=== PATIENT | female | born 1940 | race Hispanic/Latino ===

== ENCOUNTER 2017-09-11 01:37 | Emergency (ER) | payer OTHER, MEDICARE ==
[~2017-09-11] VITALS: Ht 149.9 cm; Wt 90.7 kg
--- NOTE | 2017-09-11 01:44 | ED MVC/FALL/TRAUMA COMPLAINT ---
History of Present Illness General Chief Complaint: Fall Stated Complaint: FALL Source: patient, EMS Exam Limitations: no limitations Vital Signs & Intake/Output Vital Signs & Intake/Output Vital Signs Date Time Temp Pulse Resp B/P B/P Pulse O2 O2 Flow FiO2 Mean Ox Delivery Rate 09/11 0148 98.6 87 20 153/68 94 Room Air Allergies Coded Allergies: Penicillins (Intermediate, HIVES 09/26/15) Reconcile Medications Acetaminophen (Tylenol) 325 MG TABLET 2 TAB PO BID ARTHRITIS (Reported) Aspirin (Aspirin*) 81 MG TAB.CHEW 1 TAB PO DAILY HEART (Reported) Canagliflozin (Invokana) 300 MG TABLET 1 TAB PO DAILY DM (Reported) Insulin Regular (Novolin R Inj) 1,000 UNITS/10 ML LILY 0 UNITS SC SEE ADMIN CRITERIA DIABETES (Reported) Levothyroxine Sodium (Synthroid) 75 MCG TABLET 1 TAB PO DAILY THYROID ( Reported) Metformin HCl (Glucophage) 1,000 MG TABLET 1 TAB PO BID DM (Reported) Omeprazole 20 MG CAPSULE.DR 1 CAP PO DAILY GERD (Reported) Sitagliptin Phosphate (Januvia) 100 MG TABLET 1 TAB PO DAILY DM (Reported) Triage Note: PER EMS AND [facility] PT COLOSTOMY BAG WAS LEAKING AND SLIPPED ON FLOOR ENROUTE TO BR + HEADSTRIKE AND LAC TO BACK OF HEAD. PT IS ON COUMADIN, DENIES LOC ALERT UPON ARRIVAL Triage Nurses Notes Reviewed? yes Onset: Abrupt Duration: hour(s): Timing: single episode today Severity: mild Injuries/Fall Location: head Method of Injury: fall Loss of Consciousness: no loss of consciousness Modifying Factors: Improves With: rest. Associated Symptoms: head injury HPI: 76 yo woman h/o afib, on coumadin, dementia, osteoarthritis, presents after a fall. She shares, "I bent over to fix my colostomy bag, and I fell over...." She notes that she landed on her head, had a scant amount of bleeding, which self resolved. She notes no headache, no other pain or discomfort. She has no hip pain, chest pain, syncopal symptoms. She is otherwise well. Past History Travel History Traveled to [place] past 21 day No Medical History Any Pertinent Medical History? see below for history Neurological: dementia Cardiovascular: AFIB Gastrointestinal: alcoholic hepatitis Surgical History Surgical History: none Psychosocial History What is your primary language [place]raltarian Family History Hx Contributory? No Review of Systems Review of Systems Constitutional: Reports: no symptoms. Eyes: Reports: no symptoms. Ears, Nose, Throat, Mouth: Reports: no symptoms. Respiratory: Reports: no symptoms. Cardiovascular: Reports: no symptoms. Gastrointestinal/Abdominal: Reports: no symptoms. Genitourinary: Reports: no symptoms. Musculoskeletal: Reports: no symptoms. Skin: Reports: no symptoms. Neurological/Psychological: Reports: no symptoms. All Other Systems: Reviewed and Negative Physical Exam Physical Exam General Appearance: well developed/nourished, no apparent distress Head: left sided temporal region with mild abrasion. no active bleeding. no laceration. Eyes: Bilateral: normal appearance, PERRL, EOMI. Ears, Nose, Throat, Mouth: hearing grossly normal, moist mucous membrane Neck: normal inspection, supple, full range of motion Respiratory: normal breath sounds, chest non-tender, no respiratory distress, quiet respiration, lungs clear Cardiovascular: regular rate/rhythm Gastrointestinal: normal bowel sounds, soft, non-tender Back: normal inspection Extremities: normal range of motion Neurologic/Psych: no motor/sensory deficits, awake, alert, oriented x 3 Skin: intact, normal color, warm/dry Core Measures ACS in differential dx? No CVA/TIA Diagnosis No Sepsis Present: No Sepsis Focused Exam Completed? No Progress Differential Diagnosis: C/T/L spine injury, ext injury Plan of Care: Orders Procedure Date/time Status PARTIAL THROMBOPLASTIN TIME 09/11 201 Complete PROTHROMBIN TIME 09/11 201 Complete COMPREHENSIVE METABOLIC PANEL 09/11 201 Complete CBC WITHOUT DIFFERENTIAL 09/11 201 Complete Laboratory Tests 09/11/17 0229: Anion Gap 16, Estimated GFR > 60, BUN/Creatinine Ratio 35.7 H, Glucose 206 H, Calcium 10.8 H, Total Bilirubin 0.6, AST 16, ALT 22, Alkaline Phosphatase 76, Total Protein 7.0, Albumin 3.9, Globulin 3.1, Albumin/Globulin Ratio 1.3, PT 29.5 H, INR 2.68 H, APTT 45 H, CBC w Diff MAN DIFF ORDERED, RBC 4.84, MCV 73.7 L, MCH 22.7 L, MCHC 30.7 L, RDW 17.6 H, MPV 7.5, Gran % 88.1 H, Lymphocytes % 4.5 L, Monocytes % 7.2, Eosinophils % 0.1, Basophils % 0.1, Absolute Granulocytes 15.9 H, Absolute Lymphocytes 0.8 L, Absolute Monocytes 1.3 H, Absolute Eosinophils 0, Absolute Basophils 0, Platelet Estimate ADEQUATE , Hypochromic-Microcytic 1+, Poikilocytosis 1+ Diagnostic Imaging: Viewed by Me: Radiology Read, CT Scan. Discussed w/RAD: Radiology Read, CT Scan. Radiology Impression: PATIENT: KURT KENNEDY PRESENT AGE: 76 PATIENT ACCOUNT NO: [id number] : 40 LOCATION: ER ORDERING PHYSICIAN: Onel Traore MD SERVICE DATE: 09/11/17 EXAM TYPE: RAD - XRY-AP PELVIS EXAMINATION: XR PELVIS CLINICAL INFORMATION: Fall. Trauma. COMPARISON: None TECHNIQUE: AP view of the pelvis. FINDINGS: The bones and soft tissues are normal. No fracture. Sacroiliac and hip joints are normal. Pubic symphysis is normal. No abnormal soft tissue calcifications. There is degenerative disc disease of lower lumbar spine with endplate spurring at L3- L4 L4-L5 disc levels. IMPRESSION: Normal pelvis. DICTATED BY: Tony Varner MD DATE/TIME DICTATED:09/11/17352 BREAK OUT WORKER:IVAN DATE/TIME TRANSCRIBED:09/11/17352 CONFIDENTIAL, DO NOT COPY WITHOUT APPROPRIATE AUTHORIZATION. <Electronically signed in Other Vendor System> SIGNED BY: Tony Varner MD 09/11/17356, PATIENT: KURT KENNEDY PRESENT AGE: 76 PATIENT ACCOUNT NO: [id number] : 40 LOCATION: ER ORDERING PHYSICIAN: Onel Traore MD SERVICE DATE: 09/11/17 EXAM TYPE: CAT - CT CERV SPINE WO IV CONTRAST; CT HEAD WO IV CONTRAST EXAMINATION: CT HEAD WITHOUT CONTRAST CT CERVICAL SPINE WITHOUT CONTRAST CLINICAL INFORMATION: Injury. Neck pain. COMPARISON: None. TECHNIQUE: Imaging was performed from the skull base to vertex without intravenous administration of contrast. In addition, helical noncontrast CT imaging was acquired through the cervical spine and source images were reviewed along with axial reconstructions and sagittal and coronal MPRs. DLP: 900.21 mGy-cm FINDINGS: HEAD : No intracranial mass, hemorrhage, or midline shift is visualized. The ventricles and sulci are age-appropriate. No extra-axial collections are identified. The paranasal sinuses and mastoid air cells are well aerated. CERVICAL SPINE: There is no evidence of acute cervical spine fracture. Vertebral bodies remain normal in height. Cervical vertebrae have normal alignment. There is degenerative disc height narrowing with endplate spurs at C6-C7. There is multilevel facet joint arthrosis most significant on the left side at C5-C6 and C6-C7. No pre- or paravertebral soft tissue abnormality is identified. Limited assessment of the lung apices is unremarkable. IMPRESSION: 1. No acute intracranial pathology. 2. No CT evidence of acute cervical spine fracture or traumatic subluxation DICTATED BY: Tony Varner MD DATE/TIME DICTATED:09/11/17344 BREAK OUT WORKER:HENDRICKS DATE/TIME TRANSCRIBED:09/11/17344 CONFIDENTIAL, DO NOT COPY WITHOUT APPROPRIATE AUTHORIZATION. <Electronically signed in Other Vendor System> SIGNED BY: Tony Varner MD 09/11/17351, PATIENT: KURT KENNEDY PRESENT AGE: 76 PATIENT ACCOUNT NO: [id number] : 40 LOCATION: [facility] ORDERING PHYSICIAN: Onel Traore MD SERVICE DATE: 09/11/17 EXAM TYPE: RAD - XRY-PORTABLE CHEST XRAY EXAMINATION: XR PORTABLE CHEST CLINICAL INFORMATION: Fall. Trauma. COMPARISON: None TECHNIQUE: Portable frontal view of the chest was obtained. 2: 58 AM FINDINGS: Heart size is enlarged. There is a dense left lung base and retrocardiac area. This is due to a basilar infiltrate and/or atelectasis. Right lung is clear. There is no pulmonary vascular congestion. IMPRESSION: Dense left lung base of infiltrate and/or atelectasis. DICTATED BY: Tony Varner MD DATE/ TIME DICTATED:09/11/17351 BREAK OUT WORKER:HENDRICKS DATE/TIME TRANSCRIBED: 09/11/17351 CONFIDENTIAL, DO NOT COPY WITHOUT APPROPRIATE AUTHORIZATION. < Electronically signed in Other Vendor System> SIGNED BY: Tony Varner MD 355 Departure Departure Disposition: HOME OR SELF CARE Condition: Stable Clinical Impression Primary Impression: Fall Secondary Impressions: Head injury, Pneumonia Referrals: Marifer HERRON,Darlene Short (PCP/Family) Departure Forms: Customer Survey General Discharge Information Comments 09/11/17, 4:49AM... Pt feels well in ED... ct scans benign, cxr suggestive of infiltrate, along with elevated wbc count... vitals otherwise stable.... will give trial of outpatient abx. pt returning to [facility] and so will be closely monitored.
[2017-09-11 01:48] VITALS: BP 153/68
[2017-09-11 02:33] LABS: ABSOLUTE BASOPHIL COUNT 0 /CUMM (0.0-0.2); ABSOLUTE EOSINOPHIL COUNT 0 /CUMM (0.0-0.7); ABSOLUTE GRANULOCYTE CT 15.9 /CUMM (1.4-6.5); EOSINOPHIL % 0.1 % (0-5)
[2017-09-11 02:42] LABS: PT 29.5 SEC (9.4-12.5)
[2017-09-11 02:43] LABS: PTT 45 SEC (25-37)
[2017-09-11 02:48] LABS: ABSOLUTE LYMPH COUNT 0.8 /CUMM (1.2-3.4); ABSOLUTE MONOCYTE COUNT 1.3 /CUMM (0.10-0.60); BASOPHIL % 0.1 % (0.0-2.0); GRANULOCYTE % 88.1 % (42.2-75.2); HEMATOCRIT 35.7 % (37-47); MEAN CORPUSCULAR HGB 22.7 PG (27.0-31.0); MEAN CORPUSCULAR HGB CONC 30.7 G/DL (33.0-37.0); MEAN CORPUSCULAR VOLUME 73.7 FL (81.0-99.0); MEAN PLATELET VOLUME 7.5 FL (7.4-10.4); PLATELET COUNT 376 /CUMM (130-400); RBC DISTRIBUTION WIDTH 17.6 % (11.5-14.5); RED BLOOD CELL CT 4.84 /CUMM (4.20-5.40)
--- NOTE | 2017-09-11 03:52 | CT SCAN REPORT ---
EXAMINATION: CT HEAD WITHOUT CONTRAST CT CERVICAL SPINE WITHOUT CONTRAST CLINICAL INFORMATION: Injury. Neck pain. COMPARISON: None. TECHNIQUE: Imaging was performed from the skull base to vertex without intravenous administration of contrast. In addition, helical noncontrast CT imaging was acquired through the cervical spine and source images were reviewed along with axial reconstructions and sagittal and coronal MPRs. DLP: 900.21 mGy-cm FINDINGS: HEAD: No intracranial mass, hemorrhage, or midline shift is visualized. The ventricles and sulci are age-appropriate. No extra-axial collections are identified. The paranasal sinuses and mastoid air cells are well aerated. CERVICAL SPINE: There is no evidence of acute cervical spine fracture. Vertebral bodies remain normal in height. Cervical vertebrae have normal alignment. There is degenerative disc height narrowing with endplate spurs at C6-C7. There is multilevel facet joint arthrosis most significant on the left side at C5-C6 and C6-C7. No pre- or paravertebral soft tissue abnormality is identified. Limited assessment of the lung apices is unremarkable. IMPRESSION: 1. No acute intracranial pathology. 2. No CT evidence of acute cervical spine fracture or traumatic subluxation
--- NOTE | 2017-09-11 03:56 | RADIOLOGY REPORT ---
EXAMINATION: XR PORTABLE CHEST CLINICAL INFORMATION: Fall. Trauma. COMPARISON: None TECHNIQUE: Portable frontal view of the chest was obtained. 2:58 AM FINDINGS: Heart size is enlarged. There is a dense left lung base and retrocardiac area. This is due to a basilar infiltrate and/or atelectasis. Right lung is clear. There is no pulmonary vascular congestion. IMPRESSION: Dense left lung base of infiltrate and/or atelectasis.
--- NOTE | 2017-09-11 03:57 | RADIOLOGY REPORT ---
EXAMINATION: XR PELVIS CLINICAL INFORMATION: Fall. Trauma. COMPARISON: None TECHNIQUE: AP view of the pelvis. FINDINGS: The bones and soft tissues are normal. No fracture. Sacroiliac and hip joints are normal. Pubic symphysis is normal. No abnormal soft tissue calcifications. There is degenerative disc disease of lower lumbar spine with endplate spurring at L3-L4 L4-L5 disc levels. IMPRESSION: Normal pelvis.
[2017-09-11] MEDS ORDERED: NOVOLIN R100 UNIT/1 SC (04:45)
[2017-09-11] MEDS ORDERED: OMEPRAZOLE20 M2 PO (04:46)
[2017-09-11] MEDS ORDERED: INVOKANA300 M1 PO (04:46)
[2017-09-11] MEDS ORDERED: TYLENOL325 M1 PO (04:47)
[2017-09-11] MEDS ORDERED: SYNTHROID75 MCG PO (04:48)
[2017-09-11] MEDS ORDERED: ASPIRIN81 M4 PO (04:48)
[2017-09-11] MEDS ORDERED: GLUCOPHAGE1000 M1 PO (04:48)
[2017-09-11] MEDS ORDERED: JANUVIA100 M1 PO (04:48)
[2017-09-11] MEDS ORDERED: COUMADIN4 M1 PO (04:49)
[2017-09-11] MEDS ORDERED: METOPROLOL TART25 M1 PO (04:50)
== END 2017-09-11 04:59 ==
LOC: ERH 01:37
PROVIDERS: Pediatrics
DX: S09.90XA Unspecified injury of head, initial encounter (principal); J18.9 Pneumonia, unspecified organism; W19.XXXA Unspecified fall, initial encounter; Y92.9 Unspecified place or not applicable; Y93.9 Activity, unspecified; Z79.01 Long term (current) use of anticoagulants
CPT/HCPCS: 71045; 72170; J1815